=== PATIENT | male | born 1990 | race Caucasian/White ===

== ENCOUNTER 2017-10-07 19:56 | Emergency (ER) | payer SELFPAY ==
[~2017-10-07] VITALS: Ht 167.6 cm; Wt 98.9 kg
[2017-10-07 20:10] VITALS: BP_SYST 125
[2017-10-07] MEDS ORDERED: BACITRACIN 1 GM OINT TP ONE (21:00)
[2017-10-07 21:10] VITALS: BP_SYST 128
== END 2017-10-07 21:10 | disposition home or self-care (01) ==
LOC: SED 19:56
DX: S61.213A Laceration without foreign body of left middle finger without damage to nail, initial encounter (principal); W45.8XXA Other foreign body or object entering through skin, initial encounter; Y93.89 Activity, other specified; Y92.89 Other specified places as the place of occurrence of the external cause; Y99.8 Other external cause status
CPT/HCPCS: 99283

== ENCOUNTER 2017-10-14 19:54 | Emergency (ER) | payer SELFPAY ==
[~2017-10-14] VITALS: Ht 167.6 cm; Wt 90.7 kg
[2017-10-14 19:59] VITALS: BP_SYST 130
[2017-10-14 21:11] VITALS: BP_SYST 118
== END 2017-10-14 20:45 | disposition home or self-care (01) ==
LOC: SED 19:54
DX: S61.213D Laceration without foreign body of left middle finger without damage to nail, subsequent encounter (principal); X58.XXXD Exposure to other specified factors, subsequent encounter
CPT/HCPCS: 99283